=== PATIENT | female | born 1940 | race Caucasian/White ===

== ENCOUNTER → 2017-09-10 | Outpatient (CLI) | payer MEDICARE ==
[~2017-09-10] MED LIST: ASCO100072 PO; ASPI-496 PO; CALC1TAB2 PO; CYAN1TAB29 PO; LISI-170 PO; MELO7.5T31 PO; METH4TAB7 PO; NYST1000 PO; OMEP-110 PO; PARO40TA3 PO; SENN1TAB67 PO; VITA1TAB3 PO; [UNRECOGNIZED DRUG - OTHER] PO
== END | disposition home or self-care (01) ==
LOC: CVU 08:39
PROVIDERS: ATTEND Surgery
DX: I65.23 Occlusion and stenosis of bilateral carotid arteries (principal); I10 Essential (primary) hypertension; M16.11 Unilateral primary osteoarthritis, right hip; M06.9 Rheumatoid arthritis, unspecified; Z87.891 Personal history of nicotine dependence
CPT/HCPCS: 93880; 93922; 93926

== ENCOUNTER → 2018-04-20 | Outpatient (CLI) | payer MEDICARE | END | disposition home or self-care (01) | LOC: CVU 07:24 | PROVIDERS: ATTEND Surgery | DX: I70.201 Unspecified atherosclerosis of native arteries of extremities, right leg (principal); I65.23 Occlusion and stenosis of bilateral carotid arteries; I74.3 Embolism and thrombosis of arteries of the lower extremities; I10 Essential (primary) hypertension; E78.5 Hyperlipidemia, unspecified; M06.9 Rheumatoid arthritis, unspecified; I49.9 Cardiac arrhythmia, unspecified; J44.9 Chronic obstructive pulmonary disease, unspecified; Z87.891 Personal history of nicotine dependence | CPT/HCPCS: 93880; 93922; 93926 ==